=== PATIENT | male | born 1970 | race African-American/Black ===

== ENCOUNTER 2016-12-21 23:38 | Emergency (ER) ==
[2016-12-21 23:48] VITALS: BP 114/078
[2016-12-21] MEDS ORDERED: XYLOCAINE-MPF 1% 5 ML ONE (23:56)
[2016-12-21] MEDS ORDERED: MORPHINE ONE (23:56)
[2016-12-21] MEDS ORDERED: XYLOCAINE-MPF 1% INJ ONE (23:56)
[2016-12-21] MEDS ORDERED: MORPHINE IM ONE (23:56)
[2016-12-21] MEDS ORDERED: FLAGYL PO ONE (23:57)
[2016-12-21] MEDS ORDERED: LEVAQUIN PO ONE (23:58)
--- NOTE | 2016-12-22 00:04 | PROVIDER DOCUMENTATION ---
HPI-Rash/Wound/ReCheck - General Source: patient - History of Present Illness-Dermatology Location: reports: other (coccyx) Quality: reports: painful Severity: reports: moderate Onset/Duration: reports: 1 week ago Timing: reports: still present Context/Associated Symptoms: reports: abscess Identifiable cause?: No Exposure: reports: unknown cause Locality of Occurance: Home Similar Symptoms Previously?: No Recently seen or treated by another doctor?: No <Nader Rangel - Last Filed: 12/21/16 23:59> <Paul Maher - Last Filed: 12/22/16 00:34> - General Chief Complaint: Abscess Stated Complaint: ABSCESS Time Seen by Provider: 12/21/16 23:52 Allergies/Adverse Reactions: Allergies Allergy/AdvReac Type Severity Reaction Status Date / Time aspirin Allergy Mild Nose bleed Verified 11/15/16 22:23 Home Medications: Home Medication List Medication Instructions Recorded Confirmed Last Taken Type Methocarbamol [Robaxin-750] 750 mg PO TID #30 tablet 11/15/16 Unknown Rx Tramadol [Ultram] 50 mg PO TID PRN PRN #30 tablet 11/15/16 Unknown Rx Amoxicillin [Amoxil] 500 mg PO TID #30 capsule 12/22/16 Unknown Rx Metronidazole [Flagyl] 500 mg PO BID #20 tablet 12/22/16 Unknown Rx Oxycodone HCl/Acetaminophen 1 each PO Q4-6H PRN PRN #18 tablet 12/22/16 Unknown Rx [Percocet 5-325 mg Tablet] - History of Present Illness-Dermatology Nature of Presenting Problem: 46 y/o M presents to the ED c/o abscess to coccyx area. onset x1 week. denies fever and all other symptoms. no other voiced complaints. (Nader Rangel) Review of Systems - Adult - REVIEW OF SYSTEMS - ADULT Constitutional: denies: chills, fever Eyes: reports: no symptoms reported Ears, Nose, Mouth & Throat: denies: sinus problem, throat pain Cardiovascular: denies: chest pain, palpitations Respiratory: denies: cough, shortness of breath Gastrointestinal: denies: diarrhea, nausea, vomiting Genitourinary: denies: dysuria, discharge, frequency Musculoskeletal: denies: joint pain, muscle aches Integumentary: reports: skin sores/ulcer. denies: itching, rash Neurological: denies: dizziness/vertigo, headache/migraines Psychiatric: reports: no symptoms reported Endocrine: reports: no symptoms reported Hematologic/Lymphatic: reports: no symptoms reported Allergic/Immunologic: reports: no symptoms reported <Nader Rangel - Last Filed: 12/21/16 23:59> Past History - Adult - PAST MEDICAL HISTORY-ADULT Review of Records: reports: Nursing Assessment Review, Medications Reviewed, Social history reviewed & non-contributory. Major Childhood Illnesses: reports: denies history Cardiovascular: reports: denies history Respiratory: reports: denies history Gastrointestinal: reports: denies history Obstetrical/Gynecological: reports: denies history Genitourinary: reports: denies history Musculoskeletal: reports: denies history Neurological: reports: denies history Psychiatric: reports: denies history Endocrine/Immune: reports: denies history Other Conditions: reports: denies history - PRIOR SURGERIES/PROCEDURES Surgical/Procedure History: reports: joint replacement (shoulder) - IMMUNIZATION STATUS Childhood Immunizations: See Nurse Assessment Flu Vaccine: See Nurse Assessment - FAMILY HISTORY Family History: reviewed, not pertinent - SOCIAL HISTORY Smoking: cigarettes Alcohol Use Frequency: occasionally <Nader Rangel - Last Filed: 12/21/16 23:59> Physical Exam-General - PHYSICAL EXAM-ADULT Initial Vital Signs Reviewed: Yes - CONSTITUTIONAL General Appearance: alert, no apparent distress - EYES Eyes: PERRL/EOMI, pink conjunctivae - HEAD, EARS, NOSE, MOUTH & THROAT HENMT: moist mucous membranes, normal ENT inspection - NECK Neck: full range of motion, normal inspection - RESPIRATORY Respiratory: lungs clear, normal breath sounds, no respiratory distress, no accessory muscle use - CARDIOVASCULAR Cardiovascular: normal peripheral pulses, regular rate, rhythm - GASTROINTESTINAL (ABDOMEN) Abdominal Exam: normal bowel sounds, non tender - GENITOURINARY Rectal Exam: hemorrhoids (external), other (3cm maura rectal abscess) - MUSCULOSKELETAL Back Exam: normal inspection, no vertebral tenderness Extremity: normal range of motion, normal inspection, normal capillary refill - SKIN Integumentary: normal turgor, warm/dry - NEUROLOGIC Neurologic: grossly normal, no motor/sensory deficits - PSYCHIATRIC Psych/Mental Status: normal mood/affect, oriented x 3 <Nader Rangel - Last Filed: 12/21/16 23:59> Progress <Nader Rangel - Last Filed: 12/21/16 23:59> <Paul Maher - Last Filed: 12/22/16 00:34> - PLAN OF CARE/RESULTS Progress/Plan/Lab Results: Discussed discharge and follow up. advised to take medication as prescribed. verbally understands and agrees to discharge. (Nader Ragnel) Procedures - INCISION & DRAINAGE Site: coccyx Abscess Type: Cyst Prepped with: Betadine Anesthetic: 1%, Lidocaine/Xylocaine Volume of Anesthetic (ml's): 2 Blade Size: 10 Packing placed?: No Sterile Dressing Applied?: Yes Drainage: Small Amount <Nader Rangel - Last Filed: 12/21/16 23:59> Departure - Departure Certified Medical Emergency: Emergent <Nader Rangel - Last Filed: 12/21/16 23:59> - Departure Time of Disposition Order: 00:34 Certified Medical Emergency: Emergent <Paul Maher - Last Filed: 12/22/16 00:34> - Departure DIAGNOSIS: Maura-rectal abscess Disposition: HOME 01 Condition: Fair Additional Instructions: CALL FOR APPOINTMENT WITH SURGEON TO FOLLOW-UP WARM EPSON SALT BATHS THREE TIMES A DAY. KEEP COVERED WITH A GAUZE PACK TO CATCH DRAINAGE Prescriptions: Amoxicillin [Amoxil] 500 mg PO TID #30 capsule Metronidazole [Flagyl] 500 mg PO BID #20 tablet Oxycodone HCl/Acetaminophen [Percocet 5-325 mg Tablet] 1 each PO Q4-6H PRN PRN # 18 tablet PRN Reason: Pain Referrals: Viraj Agee MD [STAFF PHYSICIAN] - Forms: Return to School/Parent Work Instructions: Acetaminophen; Oxycodone tablets, Amoxicillin capsules or tablets , Perirectal Abscess, Metronidazole tablets or capsules Attestation - Scribe Verification/Attestation Scribe:: Nader Rangel Acting as Scribe for:: Paul Maher Scribe documention review:: This chart was documented by a scribe and accurately reflects the service the provider performed and the decisions made by the provider. <Nader Rangel - Last Filed: 12/21/16 23:59> Physician Attestation
[2016-12-22] MEDS ORDERED: FLAGYL ONE (00:06)
== END 2016-12-22 00:42 | disposition home or self-care (01) ==
LOC: P.ED 23:38
DX: K61.1 Rectal abscess (principal); K64.4 Residual hemorrhoidal skin tags; Z96.619 Presence of unspecified artificial shoulder joint
CPT/HCPCS: 87070; 87077; 96372; J2270